=== PATIENT | female | born 1930 | race Caucasian/White ===

== ENCOUNTER → 2017-04-06 | Outpatient (REF) | payer MEDICARE, OTHER ==
[2015-08-25 13:53] VITALS: BMI 27.4
[~2017-04-06] MED LIST: ACET-2007 PO; ACET-2043 PO; ASCO-182 PO; ASPI-1471 PO; BISA10SU66 PR; CALC625T64 PO; CELE200C7 PO; CEPH500C24 PO; CRAN450T10 PO; CYAN1000 IM ONLY; CYAN50008 PO; CYAN5POW IM; DIAZ-308 PO; DOCU-202 PO; DOCU-416 PO; FOLI-68 PO; HYDR-317 PO; HYDR-4309 PO; IBUP600T22 PO; LEVO-3 PO; LEVO50 PO; LEVO75TA68 PO; LEVO75TA73 PO; LEVO88TA43 PO; LOPE2CAP88 PO; MELO-205 PO; METH1POW MC; MIRA50TA PO; MOM PO; NAP500 PO; NEOM1PAC11 TP; NITR-1 PO; OMEP-137 PO; ONDA4TAB PO; ONDA4TAB97 PO; OXYC5TAB38 PO; OXYGENHOME INH; PHEN200T32 PO; POLY17PO21 PO; POLY17PO25 PO; RIV10 PO; RIVA20TA PO; SENN8.6T34 PO; SULF-198 PO; TRAM-420 PO
== END ==
LOC: ZZLCC 15:37
PROVIDERS: ATTEND Nurse Practitioner Family
DX: Z87.440 Personal history of urinary (tract) infections (principal)
CPT/HCPCS: 81001

== ENCOUNTER → 2017-05-09 | Outpatient (REF) | payer MEDICARE, OTHER ==
[2015-08-25 13:53] VITALS: BMI 27.4
== END ==
LOC: ZZLCC 07:02
PROVIDERS: ATTEND Nurse Practitioner Family
DX: R31.9 Hematuria, unspecified (principal)
CPT/HCPCS: 81001

== ENCOUNTER → 2017-05-24 | Outpatient (REF) | payer MEDICARE, OTHER ==
[2015-08-25 13:53] VITALS: BMI 27.4
== END ==
LOC: ZZLCC 15:25
PROVIDERS: ATTEND Nurse Practitioner Family
DX: E03.9 Hypothyroidism, unspecified (principal); N93.8 Other specified abnormal uterine and vaginal bleeding; Z79.899 Other long term (current) drug therapy
CPT/HCPCS: 82040; 82247; 82310; 82374; 82435; 82565; 82947; 84075; 84132; 84155; 84295; 84443; 84450; 84460; 84520

== ENCOUNTER → 2017-05-25 | Outpatient (CLI) | payer MEDICARE, OTHER, MEDICAID ==
[2015-08-25 13:53] VITALS: BMI 27.4
--- NOTE | 2017-05-25 15:42 | RADIOLOGY IMAGING REPORT ---
FACILITY: [facility] PATIENT NAME: Esther Guevara : 1930 MR: [id number] V: [id number] EXAM DATE: ORDERING PHYSICIAN: MAN BANERJEE TECHNOLOGIST: Location: [facility] Patient: Esther Guevara : 1930 Visit/Account:[id number] Date of Sevice: 05/25/2017 PELVIC HISTORY: Dysfunctional uterine bleeding TECHNIQUE: Transabdominal ultrasound of the pelvis was performed., the patient refused transvaginal imaging. The patient was very confused by technologist notation was able to retain her urine COMPARISON: None. FINDINGS: Uterus: ; 5.6 cm length x 2.8 cm AP x 4.4 cm transverse. Myometrium: The myometrium appears extremely heterogeneous with possible calcifications on this very limited study. Endometrium: Limited evaluation due to nondistended bladder; double thickness 4.2 mm. Cervix: Grossly negative. Ovaries: Right - not seen Left - hypoechoic structure left adnexa may represent the ovary measuring 1.7 x 1.5 x 2.1 cm Blood flow is documented in the left ovary by duplex Doppler ultrasound. Adnexa: Grossly unremarkable. Free pelvic fluid: None. IMPRESSION: . Limited study as the patient was unable to retain her urine. Very limited images were obtained in this patient with a nondistended bladder refused transvaginal imaging. The uterus appears atrophic and heterogeneous A hypoechoic structure in the left adnexa may represent an atrophic left ovary. Right ovary not seen Report Dictated By: Jewell Owen MD at 05/25/2017 3:33 PM Report E-Signed By: Jewell Owen MD at 05/25/2017 3:37 PM [id number]:[email or web address]
== END ==
LOC: US 12:21
PROVIDERS: ATTEND Nurse Practitioner Family
DX: N85.8 Other specified noninflammatory disorders of uterus (principal)
CPT/HCPCS: 36415; 76856; 82040; 82247; 82310; 82374; 82435; 82565; 82607; 82746; 82947; 83921; 84075; 84132; 84155; 84295; 84443; 84450; 84460; 84520; 85027

== ENCOUNTER → 2017-07-26 | Outpatient (REF) | payer MEDICARE, OTHER, MEDICAID ==
[2015-08-25 13:53] VITALS: BMI 27.4
[2017-07-26 14:20] LABS: PLATELET COUNT, AUTOMATED 116 K/uL (150-450)
== END ==
LOC: ZZLCC 13:57
PROVIDERS: ATTEND Nurse Practitioner Family
DX: E03.9 Hypothyroidism, unspecified (principal); E53.8 Deficiency of other specified B group vitamins; R71.8 Other abnormality of red blood cells
CPT/HCPCS: 82607; 82746; 84443; 85025

== ENCOUNTER → 2017-08-31 | Outpatient (REF) | payer MEDICARE, OTHER, MEDICAID ==
[2015-08-25 13:53] VITALS: BMI 27.4
== END ==
LOC: ZZLCC 11:15
PROVIDERS: ATTEND Nurse Practitioner Family
DX: R30.0 Dysuria (principal); B96.20 Unspecified Escherichia coli [E. coli] as the cause of diseases classified elsewhere
CPT/HCPCS: 81001; 87077; 87088; 87186

== ENCOUNTER → 2017-09-07 | Outpatient (REF) | payer MEDICARE, OTHER, MEDICAID ==
[2015-08-25 13:53] VITALS: BMI 27.4
== END ==
LOC: ZZLCC 13:47
PROVIDERS: ATTEND Nurse Practitioner Family
DX: A04.72 Enterocolitis due to Clostridium difficile, not specified as recurrent (principal)
CPT/HCPCS: 87324; 87449

== ENCOUNTER → 2017-12-11 | Outpatient (REF) | payer MEDICARE, OTHER, MEDICAID ==
[2015-08-25 13:53] VITALS: BMI 27.4
[~2017-12-11] MED LIST changes: -HYDR-4309 PO; +HYDR-653 PO
== END ==
LOC: ZZLCC 18:05
PROVIDERS: ATTEND Nurse Practitioner Family
DX: M86.9 Osteomyelitis, unspecified (principal)

== ENCOUNTER → 2017-12-31 | Outpatient (REF) | payer MEDICARE, OTHER, MEDICAID ==
[2015-08-25 13:53] VITALS: BMI 27.4
[~2017-12-31] MED LIST changes: +POLY17PO11 PO; -POLY17PO21 PO; -SENN8.6T34 PO; +SENN8.6T35 PO
== END ==
LOC: ZZLCC 07:08
PROVIDERS: ATTEND Nurse Practitioner Family
DX: E03.9 Hypothyroidism, unspecified (principal)
CPT/HCPCS: 84443

== ENCOUNTER → 2018-02-08 | Outpatient (REF) | payer MEDICARE, OTHER, MEDICAID ==
[2015-08-25 13:53] VITALS: BMI 27.4
== END ==
LOC: ZZLCC 16:06
PROVIDERS: ATTEND Nurse Practitioner Family
DX: R41.82 Altered mental status, unspecified (principal)

== ENCOUNTER → 2018-02-09 | Outpatient (REF) | payer MEDICARE, OTHER, MEDICAID ==
[2015-08-25 13:53] VITALS: BMI 27.4
[2018-02-09 18:49] LABS: PLATELET COUNT, AUTOMATED 126 K/uL (150-450)
== END ==
LOC: ZZLCC 18:29
PROVIDERS: ATTEND Nurse Practitioner Family
DX: R41.82 Altered mental status, unspecified (principal)
CPT/HCPCS: 82040; 82247; 82310; 82374; 82435; 82565; 82947; 84075; 84132; 84155; 84295; 84443; 84450; 84460; 84520; 85025

== ENCOUNTER → 2018-02-15 | Outpatient (REF) | payer MEDICARE, OTHER, MEDICAID ==
[2015-08-25 13:53] VITALS: BMI 27.4
== END ==
LOC: ZZLCC 08:21
PROVIDERS: ATTEND Nurse Practitioner Family
DX: R10.2 Pelvic and perineal pain (principal); B96.20 Unspecified Escherichia coli [E. coli] as the cause of diseases classified elsewhere
CPT/HCPCS: 81001; 87077; 87088; 87186

== ENCOUNTER → 2018-02-25 | Outpatient (REF) | payer MEDICARE, OTHER, MEDICAID ==
[2015-08-25 13:53] VITALS: BMI 27.4
== END ==
LOC: ZZLCC 14:31
PROVIDERS: ATTEND Nurse Practitioner Family
DX: R10.13 Epigastric pain (principal)
CPT/HCPCS: 87338

== ENCOUNTER → 2018-03-01 | Outpatient (REF) | payer MEDICARE, OTHER, MEDICAID ==
[2015-08-25 13:53] VITALS: BMI 27.4
== END ==
LOC: ZZLCC 16:36
PROVIDERS: ATTEND Nurse Practitioner Family
DX: R30.0 Dysuria (principal); B96.20 Unspecified Escherichia coli [E. coli] as the cause of diseases classified elsewhere
CPT/HCPCS: 81001; 87077; 87088; 87186

== ENCOUNTER → 2018-04-16 | Outpatient (REF) | payer MEDICARE, MEDICAID ==
[2015-08-25 13:53] VITALS: BMI 27.4
[2018-04-16 02:40] LABS: PLATELET COUNT, AUTOMATED 12 K/uL (150-450)
[2018-04-16 07:58] LABS: PLATELET COUNT, AUTOMATED 89 K/uL (150-450)
== END ==
LOC: ZZLCC 01:29
PROVIDERS: ATTEND Nurse Practitioner Family
DX: R06.02 Shortness of breath (principal); R06.2 Wheezing; D69.6 Thrombocytopenia, unspecified; D51.9 Vitamin B12 deficiency anemia, unspecified; E03.9 Hypothyroidism, unspecified; R30.0 Dysuria; Z79.899 Other long term (current) drug therapy
CPT/HCPCS: 82040; 82247; 82310; 82374; 82435; 82565; 82947; 84075; 84132; 84155; 84295; 84450; 84460; 84520; 85025; 86140

== ENCOUNTER → 2018-06-11 | Outpatient (REF) | payer MEDICARE, MEDICAID ==
[2015-08-25 13:53] VITALS: BMI 27.4
[2018-06-11 17:13] LABS: PLATELET COUNT, AUTOMATED 152 K/uL (150-450)
== END ==
LOC: ZZLCC 16:54
PROVIDERS: ATTEND Nurse Practitioner Family
DX: E03.9 Hypothyroidism, unspecified (principal); R30.0 Dysuria; Z79.899 Other long term (current) drug therapy; D51.9 Vitamin B12 deficiency anemia, unspecified
CPT/HCPCS: 82040; 82247; 82310; 82374; 82435; 82565; 82607; 82746; 82947; 84075; 84132; 84155; 84295; 84443; 84450; 84460; 84520; 85025

== ENCOUNTER → 2018-06-18 | Outpatient (REF) | payer MEDICARE, MEDICAID ==
[2015-08-25 13:53] VITALS: BMI 27.4
== END ==
LOC: ZZLCC 15:16
PROVIDERS: ATTEND Nurse Practitioner Family
DX: R41.0 Disorientation, unspecified (principal); R71.8 Other abnormality of red blood cells; D75.89 Other specified diseases of blood and blood-forming organs
CPT/HCPCS: 84425

== ENCOUNTER → 2018-08-08 | Outpatient (REF) | payer MEDICARE, MEDICAID ==
[2015-08-25 13:53] VITALS: BMI 27.4
[2018-08-08 07:42] LABS: PLATELET COUNT, AUTOMATED 122 K/uL (150-450)
== END ==
LOC: ZZLCC 06:55
PROVIDERS: ATTEND Nurse Practitioner Family
DX: E53.8 Deficiency of other specified B group vitamins (principal); R71.8 Other abnormality of red blood cells
CPT/HCPCS: 82607; 82746; 85025

== ENCOUNTER → 2018-09-26 | Outpatient (CLI) | payer MEDICARE, MEDICAID ==
[2015-08-25 13:53] VITALS: BMI 27.4
--- NOTE | 2018-09-26 17:03 | RADIOLOGY IMAGING REPORT ---
FACILITY: [facility] PATIENT NAME: Esther Guevara : 1930 MR: [id number] V: [id number] EXAM DATE: ORDERING PHYSICIAN: MAN BANERJEE TECHNOLOGIST: Location: [facility] [place] Patient: Esther Guevara : 1930 Visit/Account:[id number] Date of Sevice: 09/26/2018 CHEST PA LAT HISTORY: Hypertension. Patient wheelchair-bound. COMPARISON: None FINDINGS: Cardiomediastinal contours: The heart is enlarged. Lungs and pleura: There is no finding of an infiltrate, lymphadenopathy or pleural effusion. Lung vo lumes are low. Bones/soft tissues: There are no findings of a fracture. : There are surgical clips in right upper quadrant. IMPRESSION: 1. Lung findings are low. 2. There is no infiltrate. 3. Cardiomegaly without congestive heart failure. Report Dictated By: Alberto Ryder MD at 09/26/2018 4:53 PM Report E-Signed By: Alberto Ryder MD at 09/26/2018 4:54 PM WSN:[id number]
== END ==
LOC: RAD 14:19
PROVIDERS: ATTEND Nurse Practitioner Family
DX: I51.7 Cardiomegaly (principal); E03.9 Hypothyroidism, unspecified; E53.8 Deficiency of other specified B group vitamins; G47.34 Idiopathic sleep related nonobstructive alveolar hypoventilation; I10 Essential (primary) hypertension; K21.9 Gastro-esophageal reflux disease without esophagitis; K59.00 Constipation, unspecified; Z87.440 Personal history of urinary (tract) infections; F32.9 Major depressive disorder, single episode, unspecified; R41.81 Age-related cognitive decline; B96.20 Unspecified Escherichia coli [E. coli] as the cause of diseases classified elsewhere; S82.92XD Unspecified fracture of left lower leg, subsequent encounter for closed fracture with routine healing; F03.90 Unspecified dementia, unspecified severity, without behavioral disturbance, psychotic disturbance, mood disturbance, and anxiety; R26.2 Difficulty in walking, not elsewhere classified; M62.81 Muscle weakness (generalized); M25.562 Pain in left knee; N95.2 Postmenopausal atrophic vaginitis
CPT/HCPCS: 71046